=== PATIENT | female | born 1990 | race Hispanic/Latino ===

== ENCOUNTER 2017-08-08 21:23 | Emergency (ER) | payer MEDICAID ==
[2017-08-08 22:58] VITALS: BP 135/68; PULSE 84; RESP 18; TEMP 98.8; O2SAT 98; BMI 23.3
--- NOTE | 2017-08-08 23:03 | ED PDOC ---
HPI: Headache Time Seen by Provider: 08/08/17 22:10 Chief Complaint (Nursing): Headache History Per: Patient History/Exam Limitations: no limitations Onset/Duration Of Symptoms: Days (few) Additional Complaint(s): 26 yo F w/ pmh reports gradual onset of constant throbbing headache to her temples associated with photophobia, reports taking motrin 400 mg with minimal relief, states that she has had similar headaches in the past, related to migraines. Otherwise: (-) thunderclap headache, (-) worse headache of life, (-) nausea, (-) vomiting, (-) phonophobia, (-) URI symptoms, (-) fever, (-) trauma, (-) subjective neurologic symptoms. - Risk Factors SAH Risk Factors: Nest Degree Relative(s) W/SAH, Marfan's Syndrome, Sudden Onset Of Pain, Worst Headache Of Life Past Medical History Vital Signs: Last Vital Signs Temp 98.8 F 08/08/17 21:32 Pulse 84 08/08/17 21:32 Resp 18 08/08/17 21:32 BP 135/68 08/08/17 21:32 Pulse Ox 98 08/08/17 21:32 - Medical History PMH: Migraine - Surgical History Surgical History: No Surg Hx - Family History Family History: States: No Known Family Hx - Home Medications Home Medications: Ambulatory Orders Medication Instructions Recorded Acetaminophen [Tylenol] 500 mg PO Q6 PRN 12/12/14 Ibuprofen [Motrin] 600 mg PO TID PRN #30 tab 12/12/14 Metoclopramide HCl [Reglan] 10 mg PO QID PRN #20 tablet 08/08/17 Naproxen 500 mg PO BID #30 tab 08/08/17 - Allergies Allergies/Adverse Reactions: Allergies Allergy/AdvReac Type Severity Reaction Status Date / Time No Known Allergies Allergy Verified 08/08/17 21:32 Review of Systems Constitutional: Negative for: Fever, Chills, Weakness Cardiovascular: Negative for: Chest Pain, Palpitations Respiratory: Negative for: Cough, Shortness of Breath Gastrointestinal: Negative for: Nausea, Abdominal Pain Musculoskeletal: Negative for: Neck Pain, Back Pain Neurological: Positive for: Headache (h/o migraine). Negative for: Weakness, Numbness Physical Exam - Reviewed Nursing Documentation Reviewed: Yes Vital Signs Reviewed: Yes - Physical Exam Comments: GENERAL APPEARANCE: Patient is awake, alert, oriented x 3, in mild painful distress. SKIN: Warm, dry; (-) cyanosis; (-) rash. HEAD: (-) scalp swelling or tenderness, (-) temporal artery tenderness. EYES: (-) conjunctival pallor, (-) scleral icterus. ENMT: (-) sinus tenderness; mucous membranes moist. NECK: (-) tenderness, (-) stiffness, (-) meningismus, (-) lymphadenopathy. CHEST AND RESPIRATORY: (-) rales, (-) rhonchi, (-) wheezes; breath sounds equal bilaterally. HEART AND CARDIOVASCULAR: (-) irregularity; (-) murmur, (-) gallop. ABDOMEN AND GI: Soft; (-) tenderness. EXTREMITIES: (-) deformity. NEURO AND PSYCH: Mental status as above. 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 Strength and DTRs symmetric. Babinski normal bilaterally. - ECG O2 Sat by Pulse Oximetry: 98 Medical Decision Making Medical Decision Making: Previous medical records reviewed, patient was seen and evaluated in this emergency room in November 2014 for a headache and she had a normal CAT scan of her head during that visit. Plan : - Toradol 60 mg IM - Flexeril 10 mg by mouth On reevaluation, patient reported significant improvement of her headache. On exam patient is laying in bed comfortably in no acute distress. Repeat neuro exam shows no acute focal findings. Patient instructed to follow up with a neurologist in 1-2 days without fail. Advised to take medication as prescribed. Return to the emergency room at any time for any new or worsening symptoms. Patient states she fully agrees with and understands discharge instructions. States that she agrees with the plan and disposition. Verbalized and repeated discharge instructions and plan. I have given the patient opportunity to ask any additional questions. Disposition - Clinical Impression Clinical Impression: Headache, Migraine - Patient ED Disposition Is Patient to be Admitted: No Counseled Patient/Family Regarding: Diagnosis, Need For Followup, Rx Given - Disposition Disposition: Routine/Home Disposition Time: 00:00 Condition: STABLE Prescriptions: Metoclopramide HCl [Reglan] 10 mg PO QID PRN #20 tablet PRN Reason: Pain, Moderate (4-7) Naproxen 500 mg PO BID #30 tab Instructions: Migraine Headache (ED), Acute Headache (ED) Forms: [employer] [facility] (American), [facility] ED School/Work Excuse Print Language: SAUDI ARABIAN - 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
== END 2017-08-09 00:12 | disposition home or self-care (01) ==
LOC: H.ER 21:23
DX: G43.909 Migraine, unspecified, not intractable, without status migrainosus (principal)
CPT/HCPCS: 81025; 96372; 99282; J1885

== ENCOUNTER 2017-11-05 19:47 | Emergency (ER) | payer MEDICAID ==
[2017-11-05 19:47] VITALS: BMI 23.3
[2017-11-05 19:59] VITALS: BP 122/78; PULSE 72; RESP 18; TEMP 98.4; O2SAT 99
[2017-11-05 20:43] LABS: SQUAMOUS EPITHIAL 1 /hpf (0-5); URINE BILIRUBIN NEGATIVE (NEGATIVE); URINE BLOOD NEGATIVE (NEGATIVE); URINE CLARITY CLEAR (Clear); URINE COLOR STRAW (YELLOW); URINE GLUCOSE (UA) NEG (Normal); URINE LEUKOCYTE ESTERASE TRACE Leu/uL (Negative); URINE PROTEIN NEGATIVE (NEGATIVE); URINE UROBILINOGEN 0.2-1.0 mg/dL (0.2-1.0)
--- NOTE | 2017-11-05 22:10 | ED PDOC ---
HPI: General Adult Time Seen by Provider: 11/05/17 19:59 Chief Complaint (Nursing): Back Pain Chief Complaint (Provider): Right flank pain x 2 days History Per: Patient History/Exam Limitations: no limitations Onset/Duration Of Symptoms: Days Have you had recent travel within the past 21 days to any of the following countries: [place], [place], [place] or [place]?: No Current Symptoms Are (Timing): Still Present Additional Complaint(s): Pt states the pain radiates towards the front. No fever/chills. No similar in the past. No recent change in activities. Pt reports 1 episode of diarrhea. Denies dysuira, or SOB. Past Medical History Reviewed: Historical Data, Nursing Documentation, Vital Signs Vital Signs: Last Vital Signs Temp 98.4 F 11/05/17 19:56 Pulse 72 11/05/17 19:56 Resp 18 11/05/17 19:56 BP 122/78 11/05/17 19:56 Pulse Ox 99 11/05/17 22:10 - Medical History PMH: Migraine - Surgical History Surgical History: No Surg Hx - Family History Family History: States: No Known Family Hx - Home Medications Home Medications: Ambulatory Orders Medication Instructions Recorded Acetaminophen [Tylenol] 500 mg PO Q6 PRN 12/12/14 Ibuprofen [Motrin] 600 mg PO TID PRN #30 tab 12/12/14 Metoclopramide HCl [Reglan] 10 mg PO QID PRN #20 tablet 08/08/17 Naproxen 500 mg PO BID #30 tab 08/08/17 Ciprofloxacin [Cipro] 500 mg PO BID #10 tab 11/05/17 - Allergies Allergies/Adverse Reactions: Allergies Allergy/AdvReac Type Severity Reaction Status Date / Time No Known Allergies Allergy Verified 08/08/17 21:32 Review of Systems ROS Statement: Except As Marked, All Systems Reviewed And Found Negative Constitutional: Negative for: Fever, Chills Gastrointestinal: Positive for: Abdominal Pain (Radiated to right side ), Diarrhea Musculoskeletal: Positive for: Back Pain. Negative for: Neck Pain, Shoulder Pain Physical Exam - Reviewed Nursing Documentation Reviewed: Yes Vital Signs Reviewed: Yes - Physical Exam Appears: Positive for: Well, Non-toxic, No Acute Distress Head Exam: Positive for: ATRAUMATIC, NORMAL INSPECTION, NORMOCEPHALIC Skin: Positive for: Normal Color, Warm, DRY Eye Exam: Positive for: Normal appearance ENT: Positive for: Normal ENT Inspection Neck: Positive for: Normal, Painless ROM Cardiovascular/Chest: Positive for: Regular Rate, Rhythm Respiratory: Positive for: Normal Breath Sounds. Negative for: Accessory Muscle Use, Respiratory Distress Back: Positive for: Normal Inspection Extremity: Positive for: Normal ROM Neurologic/Psych: Positive for: Alert, Oriented - ECG O2 Sat by Pulse Oximetry: 99 Medical Decision Making Medical Decision Making: Endorsed pending US at 0000. Downtime. Disposition - Clinical Impression Clinical Impression: UTI (urinary tract infection) - Patient ED Disposition Is Patient to be Admitted: No Counseled Patient/Family Regarding: Diagnosis, Need For Followup, Rx Given - Disposition Disposition: Routine/Home Disposition Time: 00:00 Condition: STABLE Prescriptions: Ciprofloxacin [Cipro] 500 mg PO BID #10 tab Instructions: Urinary Tract Infections in Adults Forms: [facility] (Chinese)
--- NOTE | 2017-11-06 09:48 | US ---
HISTORY: Acute onset right flank pain, right ovarian cyst Menstrual status: LMP 10/26/2017 cycles are regular. Negative test (concurrent with this examination). COMPARISON: 11/05/2016 CT abdomen and pelvis TECHNIQUE: Transvaginal only. Real -time technique with 2D, duplex and color Doppler FINDINGS: UTERUS: Measures 3.9 x 4.8 x 6.8 cm. Normal in size and appearance. No fibroid or other mass lesion seen. ENDOMETRIUM: Measures 5.9 mm in diameter. No ultrasound findings to suggest gestational sac, fluid, debris, mass or polyp or other pathologic process within the endometrium. CERVIX: No cervical abnormality identified. RIGHT OVARY: Measures 2 x 2.6 x 2.4 cm. No solid mass. Normal flow. Multiple subcentimeter follicles. LEFT OVARY: Measures 1.1 x 3.5 x 3.6 cm. No solid mass. Normal flow. Multiple subcentimeter follicles. FREE FLUID: No significant free fluid noted. OTHER FINDINGS: None. IMPRESSION: No significant or acute findings to account for/ related to the clinical presentation.
--- NOTE | 2017-11-06 11:55 | CT ---
PROCEDURE: CT Abdomen and Pelvis without intravenous contrast HISTORY: Right flank pain COMPARISON: None. TECHNIQUE: CT scan of the abdomen and pelvis was performed without administration of intravenous contrast. Oral contrast was not administered. Coronal and sagittal reformatted images were obtained. Radiation dose: Total exam DLP = Total exam DLP = 296.99 mGy-cm. This CT exam was performed using one or more of the following dose reduction techniques: Automated exposure control, adjustment of the mA and/or kV according to patient size, and/or use of iterative reconstruction technique. FINDINGS: LOWER THORAX: The lung bases are clear. LIVER: Normal in size. No gross lesion or ductal dilatation. GALLBLADDER AND BILE DUCTS: No calcified gallstones. PANCREAS: Normal in size. No gross lesion or ductal dilatation. SPLEEN: Normal in size. ADRENALS: No discrete nodules. KIDNEYS AND URETERS: Both kidneys are normal in size without nephrolithiasis or hydronephrosis. VASCULATURE: No aortic aneurysm. BOWEL: The small bowel loops are normal in caliber. There is moderate amount of stool in the colon. No bowel dilatation or obstruction. . APPENDIX: Normal appendix. PERITONEUM: No free fluid. No free air. LYMPH NODES: No enlarged lymph nodes. BLADDER: The urinary bladder is partially decompressed. REPRODUCTIVE: The uterus is normal in size. BONES: No acute fracture. Within normal limits for the patient's age. OTHER FINDINGS: None. IMPRESSION: No acute abdominal or pelvic abnormality. A preliminary report was provided by [employer] [facility].
== END 2017-11-06 00:02 | disposition home or self-care (01) ==
LOC: H.ER 19:47
DX: N39.0 Urinary tract infection, site not specified (principal)

== ENCOUNTER 2018-03-01 21:42 | Emergency (ER) | payer SELFPAY ==
[2018-03-01 21:42] VITALS: BMI 23.3
[2018-03-01 21:49] VITALS: BP 130/84; PULSE 91; RESP 18; TEMP 98.5; O2SAT 100
--- NOTE | 2018-03-01 23:16 | ED PDOC ---
HPI: Headache Time Seen by Provider: 03/01/18 21:57 Chief Complaint (Nursing): Headache Chief Complaint (Provider): Posterior neck pain and headache History Per: Patient History/Exam Limitations: no limitations Onset/Duration Of Symptoms: Days Severity: Moderate Pain Scale Rating Of: 8 Quality: Dull Preceeding Symptoms: None Associated Symptoms: denies: Photophobia, Blurred Vision, Nausea, Vomiting, Extremity Weakness Additional Complaint(s): 27 yo female with no medical problems presents for evaluation of headache and neck pain x 5 days. Pt report similar in 2015 when she was seen in ER. Pt denies head injury. Pt states headache is similar to pain in 2015. Pt was seen at that time and had CT completed. Pt reports daily stress due to work. Past Medical History Reviewed: Historical Data, Nursing Documentation, Vital Signs Vital Signs: Last Vital Signs Temp 98.5 F 03/01/18 21:47 Pulse 91 H 03/01/18 21:47 Resp 18 03/01/18 21:47 BP 130/84 03/01/18 21:47 Pulse Ox 100 03/01/18 21:47 - Medical History PMH: Migraine - Surgical History Surgical History: No Surg Hx - Family History Family History: States: No Known Family Hx - Living Arrangements Living Arrangements: With Family - Home Medications Home Medications: Ambulatory Orders Medication Instructions Recorded Acetaminophen [Tylenol] 500 mg PO Q6 PRN 12/12/14 Ibuprofen [Motrin] 600 mg PO TID PRN #30 tab 12/12/14 Metoclopramide HCl [Reglan] 10 mg PO QID PRN #20 tablet 08/08/17 Naproxen 500 mg PO BID #30 tab 08/08/17 Ciprofloxacin [Cipro] 500 mg PO BID #10 tab 11/05/17 Acetaminophen/Butalbital/Caf 2 tab PO Q8H #16 tab 03/01/18 [Fioricet] - Allergies Allergies/Adverse Reactions: Allergies Allergy/AdvReac Type Severity Reaction Status Date / Time No Known Allergies Allergy Verified 08/08/17 21:32 Review of Systems ROS Statement: Except As Marked, All Systems Reviewed And Found Negative Constitutional: Negative for: Fever, Chills Gastrointestinal: Negative for: Nausea, Vomiting, Abdominal Pain Genitourinary Female: Negative for: Dysuria Musculoskeletal: Positive for: Neck Pain Neurological: Positive for: Headache (Posterior ). Negative for: Weakness, Numbness, Altered Mental Status Psych: Negative for: Psychosis, Suicidal ideation, Withdrawal Physical Exam - Reviewed Nursing Documentation Reviewed: Yes Vital Signs Reviewed: Yes - Physical Exam Appears: Positive for: Well, Non-toxic, No Acute Distress Head Exam: Positive for: ATRAUMATIC, NORMAL INSPECTION, NORMOCEPHALIC Skin: Positive for: Normal Color, Warm, DRY Eye Exam: Positive for: EOMI, Normal appearance, PERRL ENT: Positive for: Normal ENT Inspection Neck: Positive for: Normal, Painless ROM, Supple Respiratory: Negative for: Accessory Muscle Use, Respiratory Distress Back: Positive for: Normal Inspection Extremity: Positive for: Normal ROM Neurologic/Psych: 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 Negative for: Motor/Sensory Deficits, Aphasia, Facial Droop - ECG O2 Sat by Pulse Oximetry: 100 Medical Decision Making Medical Decision Making: Flexeril and toradol in Er. Pt reports feeling better. Discussed f/u outpatient. Disposition - Clinical Impression Clinical Impression: Headache - Patient ED Disposition Is Patient to be Admitted: No Counseled Patient/Family Regarding: Diagnosis, Need For Followup, Rx Given - Disposition Referrals: Cory Marrero MD [Staff Provider] - Disposition: Routine/Home Disposition Time: 23:14 Condition: GOOD Prescriptions: Acetaminophen/Butalbital/Caf [Fioricet] 2 tab PO Q8H #16 tab Instructions: Migraine Headache (DC)
== END 2018-03-01 23:26 | disposition home or self-care (01) ==
LOC: H.ER 21:42
DX: R51 Headache (principal)
CPT/HCPCS: 81025; 96372; 99285; J1885

== ENCOUNTER 2018-03-04 20:48 | Emergency (ER) | payer SELFPAY ==
[2018-03-04 20:48] VITALS: BMI 23.3
[2018-03-04 20:58] VITALS: O2SAT 100
--- NOTE | 2018-03-04 21:40 | ED PDOC ---
HPI: Headache Time Seen by Provider: 03/04/18 21:12 Chief Complaint (Nursing): Headache History Per: Patient History/Exam Limitations: no limitations Onset/Duration Of Symptoms: Days Current Symptoms Are (Timing): Better Additional Complaint(s): Hx of migraines presenting with headache and RUE numbness, states her headache currently is throbbing "all over", nonthunderclap, not maximal in onset, has been there for 5 days, states that she has not filled the prescription for fiorecet because she "forgot". States that at 6PM today she experienced RUE numbness, but not weakness or loss of function. Denies vision changes, nausea, vomiting, or any other symptoms. Past Medical History Reviewed: Historical Data, Nursing Documentation, Vital Signs Vital Signs: Last Vital Signs Temp 98.5 F 03/04/18 20:55 Pulse 83 03/04/18 20:55 Resp 16 03/04/18 20:55 BP 122/78 03/04/18 20:55 Pulse Ox 100 03/04/18 20:55 - Medical History PMH: Migraine Denies: Chronic Kidney Disease - Family History Family History: States: Unknown Family Hx - Home Medications Home Medications: Ambulatory Orders Medication Instructions Recorded Acetaminophen [Tylenol] 500 mg PO Q6 PRN 12/12/14 Ibuprofen [Motrin] 600 mg PO TID PRN #30 tab 12/12/14 Metoclopramide HCl [Reglan] 10 mg PO QID PRN #20 tablet 08/08/17 Naproxen 500 mg PO BID #30 tab 08/08/17 Ciprofloxacin [Cipro] 500 mg PO BID #10 tab 11/05/17 Acetaminophen/Butalbital/Caf 2 tab PO Q8H #16 tab 03/01/18 [Fioricet] - Allergies Allergies/Adverse Reactions: Allergies Allergy/AdvReac Type Severity Reaction Status Date / Time No Known Allergies Allergy Verified 03/04/18 20:55 Review of Systems ROS Statement: Except As Marked, All Systems Reviewed And Found Negative Neurological: Positive for: Headache Physical Exam - Reviewed Nursing Documentation Reviewed: Yes Vital Signs Reviewed: Yes - Physical Exam Appears: Positive for: Well, Non-toxic, No Acute Distress Head Exam: Positive for: ATRAUMATIC, NORMAL INSPECTION, NORMOCEPHALIC Skin: Positive for: Normal Color, Warm, DRY Eye Exam: Positive for: EOMI, Normal appearance, PERRL ENT: Positive for: Normal ENT Inspection Neck: Positive for: Normal, Painless ROM Cardiovascular/Chest: Positive for: Regular Rate, Rhythm Respiratory: Positive for: CNT, Normal Breath Sounds Gastrointestinal/Abdominal: Positive for: Normal Exam, Soft Back: Positive for: Normal Inspection Extremity: Positive for: Normal ROM Neurologic/Psych: 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 Negative for: Motor/Sensory Deficits, Aphasia, Facial Droop - ECG O2 Sat by Pulse Oximetry: 100 Pulse Ox Interpretation: Normal Medical Decision Making Medical Decision MakinPM Hx of migraines presenting with headache and numbness -patient very well appearing, normal vitals, normal exam including full neuro exam: normal -unlikely SAH, meningitis, or other patholgical headache -most likely complex migraine -will get head CT, give NSAID and re-eval 1045PM EXAM: CT Head Without Intravenous Contrast CLINICAL HISTORY: 27 years old, female; Pain and signs and symptoms; Other: Right arm tingling; Headache; Headache not specified; Additional info: Sindy flores, [place] TECHNIQUE: Axial computed tomography images of the head/brain without intravenous contrast. All CT scans at this facility use at least one of these dose optimization techniques: automated exposure control; mA and/or kV adjustment per patient size (includes targeted exams where dose is matched to clinical indication); or iterative reconstruction. Coronal and sagittal reformatted images were created and reviewed. COMPARISON: CT - HEAD W/O CONTRAST 2014-12-12 09:51 FINDINGS: Brain: Unremarkable. Ventricles: Unremarkable. Bones/joints: Unremarkable. No acute fracture. Soft tissues: Unremarkable. Sinuses: Unremarkable as visualized. Mastoid air cells: Unremarkable as visualized. IMPRESSION: No acute intracranial pathology or traumatic injury. Thank you for allowing us to participate in the care of your patient. Dictated and Authenticated by: Mp Ha MD 03/04/2018 10:47 PM Eastern Time ([place] & [place]) Patient feeling better, advised to followup as outpatient with neuro. Advised NSAIDs for headache and if worsening, may take fiorecet as previously prescribed. Vitals stable, well appearing upon discharge. Disposition - Clinical Impression Clinical Impression: Migraine - Disposition Referrals: Spencer Steele MD [Medical Doctor] - Disposition: Routine/Home Disposition Time: 22:49 Condition: IMPROVED Instructions: Migraine Headaches in Adults Forms: [facility] (Croatian)
[2018-03-04 23:10] VITALS: BP 147/82; PULSE 94; RESP 18; TEMP 97.8
--- NOTE | 2018-03-05 07:42 | CT ---
Date of service: 03/04/2018 PROCEDURE: CT HEAD WITHOUT CONTRAST. HISTORY: Right upper extremity numbness, [place] COMPARISON: CT head dated 12/12/2014 TECHNIQUE: Axial computed tomography images were obtained through the head/brain without intravenous contrast. Radiation dose: Total exam DLP = 650 mGy-cm. This CT exam was performed using one or more of the following dose reduction techniques: Automated exposure control, adjustment of the mA and/or kV according to patient size, and/or use of iterative reconstruction technique. FINDINGS: HEMORRHAGE: No intracranial hemorrhage. BRAIN: No mass effect or edema. No atrophy or chronic microvascular ischemic changes. VENTRICLES: Unremarkable. No hydrocephalus. CALVARIUM: Unremarkable. PARANASAL SINUSES: Unremarkable as visualized. No significant inflammatory changes. MASTOID AIR CELLS: Unremarkable as visualized. No inflammatory changes. OTHER FINDINGS: None. IMPRESSION: No acute intracranial abnormality. If symptoms persists, consider correlation with MRI. These findings were preliminarily reported at 10:47 p.m. on 03/04/[address] Mp Ha from [facility].
== END 2018-03-04 23:19 | disposition home or self-care (01) ==
LOC: H.ER 20:48
DX: G43.909 Migraine, unspecified, not intractable, without status migrainosus (principal)

== ENCOUNTER 2018-05-06 19:19 | Emergency (ER) | payer SELFPAY ==
[2018-05-06 19:19] VITALS: BMI 23.3
[2018-05-06 19:49] VITALS: BP 137/82; PULSE 78; RESP 16; O2SAT 100
--- NOTE | 2018-05-06 20:56 | ED PDOC ---
HPI: Abdomen Time Seen by Provider: 05/06/18 20:45 Chief Complaint (Nursing): Abdominal Pain Chief Complaint (Provider): lower abdominal cramping History Per: Patient History/Exam Limitations: no limitations Onset/Duration Of Symptoms: Days (2), Waxing/Waning Current Symptoms Are (Timing): Still Present Location Of Pain/Discomfort: RLQ, LLQ, Suprapubic Quality Of Discomfort: Cramping Additional Complaint(s): 27 y/o female presents for evaluation of intermittent lower abdominal cramping x 2 days, worse today. + breast soreness. Denies fever, nausea/vomiting, chest pain, shortness of breath, palpitations, changes in bowel movements, urinary symptoms, vaginal bleeding/discharge. Patient had + test at home last week. Abnormal Vaginal Bleeding: No Last Menstral Period: 04/02/18 : 3 Para: 1 Miscarriage: 1 Past Medical History Reviewed: Historical Data, Nursing Documentation, Vital Signs Vital Signs: Last Vital Signs Temp 98.3 F 05/06/18 19:46 Pulse 78 05/06/18 19:46 Resp 16 05/06/18 19:46 BP 137/82 05/06/18 19:46 Pulse Ox 100 05/06/18 19:46 - Medical History PMH: Migraine Denies: Chronic Kidney Disease - Surgical History Surgical History: No Surg Hx - Family History Family History: States: Unknown Family Hx - Living Arrangements Living Arrangements: With Family - Home Medications Home Medications: Ambulatory Orders Medication Instructions Recorded Acetaminophen [Tylenol] 500 mg PO Q6 PRN 12/12/14 Ibuprofen [Motrin] 600 mg PO TID PRN #30 tab 12/12/14 Metoclopramide HCl [Reglan] 10 mg PO QID PRN #20 tablet 08/08/17 Naproxen 500 mg PO BID #30 tab 08/08/17 Ciprofloxacin [Cipro] 500 mg PO BID #10 tab 11/05/17 Acetaminophen/Butalbital/Caf 2 tab PO Q8H #16 tab 03/01/18 [Fioricet] Nitrofurantoin Macrocrystals 100 mg PO BID #9 cap 05/07/18 [Macrobid] - Allergies Allergies/Adverse Reactions: Allergies Allergy/AdvReac Type Severity Reaction Status Date / Time No Known Allergies Allergy Verified 05/06/18 19:46 Review of Systems ROS Statement: Except As Marked, All Systems Reviewed And Found Negative Genitourinary Female: Positive for: Pelvic Pain Physical Exam - Reviewed Nursing Documentation Reviewed: Yes Vital Signs Reviewed: Yes - Physical Exam Appears: Positive for: Well, Non-toxic, No Acute Distress Head Exam: Positive for: ATRAUMATIC, NORMAL INSPECTION, NORMOCEPHALIC Skin: Positive for: Normal Color Eye Exam: Positive for: Normal appearance ENT: Positive for: Normal ENT Inspection Cardiovascular/Chest: Positive for: Regular Rate, Rhythm Respiratory: Positive for: Normal Breath Sounds Gastrointestinal/Abdominal: Positive for: Bowel Sounds, Soft, Tenderness (rlq, llq) Back: Positive for: Normal Inspection Extremity: Positive for: Normal ROM Neurologic/Psych: Positive for: Alert, Oriented (x3) - Laboratory Results Result Diagrams: 05/06/18 21:30 05/06/18 21:30 - ECG O2 Sat by Pulse Oximetry: 100 - Progress ED Course And Treament: labs, urine, OB TV u/s USArad impression: tiny cystic structure in the endometrial canal which could represent a very early gestation. No evidence of a pole or yolk sac this time. If there is continued clinical concern, serial serum beta hCG levels would be recommended for further evaluation Ptaient educated on findings, discharged with rx Macrobid (dose given in ED) Advised follow up in 48 hours for repeat beta. Return precautions given Disposition - Clinical Impression Clinical Impression: Abdominal pain during , UTI (urinary tract infection) - Patient ED Disposition Is Patient to be Admitted: No Counseled Patient/Family Regarding: Studies Performed, Diagnosis, Need For Followup, Rx Given - Disposition [facility] Disposition: Routine/Home Disposition Time: 00:16 Condition: IMPROVED Prescriptions: Nitrofurantoin Macrocrystals [Macrobid] 100 mg PO BID #9 cap Instructions: Urinary Tract Infections in Adults, Round Ligament Pain
[2018-05-06 21:50] LABS: BASO % 0.4 % (0.0-2.0); EOS # 0.1 K/uL (0.0-0.7); EOS % 0.9 % (0.0-4.0); HEMOGLOBIN 11.1 g/dL (12.0-16.0); LYMPH # 2.2 K/uL (1.0-4.3); LYMPH % 22.4 % (20.0-40.0); MEAN CELL VOLUME 80.6 fl (81.0-99.0); MEAN CORPUSCULAR HGB CONC 32.2 g/dL (33.0-37.0); MONO # 0.6 K/uL (0.0-0.8); MONO % 6.2 % (0.0-10.0); NEUT % 70.1 % (50.0-75.0); NRBC % 0.1 % (0.0-0.0); RBC 4.26 Mil/uL (3.80-5.20); RED CELL DISTRIBUTION WIDTH 16.6 % (11.5-14.5)
[2018-05-06 21:51] LABS: SQUAMOUS EPITHIAL 1 /hpf (0-5); URINE BACTERIA RARE (<OCC); URINE BILIRUBIN NEGATIVE (NEGATIVE); URINE BLOOD NEGATIVE (NEGATIVE); URINE CLARITY SLIGHTY-CLOUDY (Clear); URINE COLOR YELLOW (YELLOW); URINE GLUCOSE (UA) NEG (Normal); URINE LEUKOCYTE ESTERASE TRACE Leu/uL (Negative); URINE PROTEIN NEGATIVE (NEGATIVE); URINE UROBILINOGEN 0.2-1.0 mg/dL (0.2-1.0)
[2018-05-06 21:55] LABS: ALB/GLOB RATIO 1.2 (1.0-2.1); ALBUMIN 4.2 g/dL (3.5-5.0); ALT/SGPT 30 U/L (9-52); AST/SGOT 20 U/L (14-36); BLOOD UREA NITROGEN 9 mg/dl (7-17); CALCIUM 9.6 mg/dL (8.4-10.2); GFR NON-AFRICAN AMERICAN > 60
[2018-05-07 00:38] VITALS: TEMP 98.5
--- NOTE | 2018-05-07 15:35 | US ---
Date of service: 05/06/2018 PROCEDURE: OB Pelvic Ultrasound HISTORY: ; pain COMPARISON: None available. FINDINGS: UTERUS: The central endometrial echo complex measures 13 mm. There is a small anechoic structure in the endometrial canal which measures 0.4 cm. Uterus measures 7.3 x 4.6 x 5.5 cm. No mass CERVIX: Long and closed. No cervical abnormality seen. RIGHT OVARY: Measures 2.3 x 2.1 x 1.8 cm. No mass. Normal flow. LEFT OVARY: Measures 2.7 x 1.9 x 3.6 cm. No mass. Normal flow. FREE FLUID: None. OTHER FINDINGS: None. IMPRESSION: Small anechoic structure within the endometrial canal which could represent gestational sac with the stated clinical history. It is too small to accurately characterize gestational age. Clinical and imaging follow-up is advised. A preliminary report was provided by [employer].
== END 2018-05-07 00:43 | disposition home or self-care (01) ==
LOC: H.ER 19:19
DX: N39.0 Urinary tract infection, site not specified (principal)

== ENCOUNTER 2018-05-20 12:35 | Emergency (ER) | payer MEDICAID ==
[2018-05-20 12:35] VITALS: BMI 23.3
--- NOTE | 2018-05-20 13:17 | ED PDOC ---
HPI: Abdomen Time Seen by Provider: 05/20/18 12:53 Chief Complaint (Nursing): Abdominal Pain Chief Complaint (Provider): Epigastric pain History Per: Patient History/Exam Limitations: no limitations Onset/Duration Of Symptoms: Days (several weeks) Outside of [place] travel?: No Current Symptoms Are (Timing): Still Present Location Of Pain/Discomfort: Epigastric Quality Of Discomfort: Cramping, Burning Associated Symptoms: Nausea, Loss Of Appetite Exacerbating Factors: Food Alleviating Factors: Other (milk) Additional Complaint(s): 27 y/o 7 week Female, , who presents today with c/o epigastric pain. Pt presented to ED on 05/05 with abdominal pain at which time was found to have UTI treated with Macrobid. She also had TV ultrasound that showed Past Medical History Vital Signs: Last Vital Signs Temp 98.4 F 05/20/18 12:38 Pulse 86 05/20/18 12:38 Resp 17 05/20/18 12:38 BP 131/79 05/20/18 12:38 Pulse Ox 98 05/20/18 12:38 - Medical History PMH: Migraine Denies: Chronic Kidney Disease - Family History Family History: States: Unknown Family Hx - Home Medications Home Medications: Ambulatory Orders Medication Instructions Recorded Acetaminophen [Tylenol] 500 mg PO Q6 PRN 12/12/14 Ibuprofen [Motrin] 600 mg PO TID PRN #30 tab 12/12/14 Metoclopramide HCl [Reglan] 10 mg PO QID PRN #20 tablet 08/08/17 Naproxen 500 mg PO BID #30 tab 08/08/17 Ciprofloxacin [Cipro] 500 mg PO BID #10 tab 11/05/17 Acetaminophen/Butalbital/Caf 2 tab PO Q8H #16 tab 03/01/18 [Fioricet] Nitrofurantoin Macrocrystals 100 mg PO BID #9 cap 05/07/18 [Macrobid] - Allergies Allergies/Adverse Reactions: Allergies Allergy/AdvReac Type Severity Reaction Status Date / Time No Known Allergies Allergy Verified 05/20/18 12:37 - Laboratory Results Result Diagrams: 05/20/18 13:30 05/20/18 13:30 - ECG O2 Sat by Pulse Oximetry: 98 Medical Decision Making Medical Decision Making: RUQ Ultrasound Transvaginal U/S CBC, CMP U/A Pepcid 20mg IV x 1 U/A negative CBC: HgB 11.4, otherwise wnl CMP: Wnl Transvaginal U/S: single live intrauterine gestation with average U/S age 6 wks 5 days. HR 121 beats/min. Cervix long and closed. RUQ U/S: unremarkable Pt re-evaluated with improvement in epigastric pain after pepcid taken. Pt discharged with recommendation for PRN Pepcid/Tums for occasional epigastric pain. Referred to [facility] for care. Disposition - Clinical Impression Clinical Impression: Gastritis - Patient ED Disposition Is Patient to be Admitted: No - Disposition Referrals: [facility] [Outside] Disposition: Routine/Home Disposition Time: 17:55 Condition: STABLE Additional Instructions: Ok to use TUMs for pain. Avoid acidic foods. 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 Instructions: Gastritis (DC) Forms: [facility] (Icelandic), [facility] ED School/Work Excuse Print Language: TELUGU
[2018-05-20 13:52] LABS: BASO % 0.1 % (0.0-2.0); EOS % 0.5 % (0.0-4.0); HEMOGLOBIN 11.4 g/dL (12.0-16.0); LYMPH # 1.2 K/uL (1.0-4.3); LYMPH % 15.3 % (20.0-40.0); MEAN CELL VOLUME 81.2 fl (81.0-99.0); MEAN CORPUSCULAR HEMOGLOBIN 26.1 pg (27.0-31.0); MEAN CORPUSCULAR HGB CONC 32.1 g/dL (33.0-37.0); MEAN PLATELET VOLUME 11.6 fl (7.2-11.7); MONO # 0.4 K/uL (0.0-0.8); MONO % 5.7 % (0.0-10.0); NEUT # 6.1 K/uL (1.8-7.0); NEUT % 78.4 % (50.0-75.0); RBC 4.39 Mil/uL (3.80-5.20); RED CELL DISTRIBUTION WIDTH 17.1 % (11.5-14.5); WHITE BLOOD COUNT 7.8 K/uL (4.8-10.8)
[2018-05-20 14:01] LABS: SQUAMOUS EPITHIAL 4 /hpf (0-5); URINE AMORPHOUS SEDIMENT OCC /ul (<OCC); URINE BACTERIA RARE (<OCC); URINE BILIRUBIN NEGATIVE (NEGATIVE); URINE BLOOD NEGATIVE (NEGATIVE); URINE CLARITY TURBID (Clear); URINE COLOR YELLOW (YELLOW); URINE GLUCOSE (UA) NEG (Normal); URINE LEUKOCYTE ESTERASE NEG Leu/uL (Negative); URINE PROTEIN NEGATIVE (NEGATIVE); URINE UROBILINOGEN 0.2-1.0 mg/dL (0.2-1.0)
[2018-05-20 14:13] LABS: ALB/GLOB RATIO 1.2 (1.0-2.1); ALBUMIN 4.2 g/dL (3.5-5.0); ALT/SGPT 26 U/L (9-52); AST/SGOT 21 U/L (14-36); BLOOD UREA NITROGEN 6 mg/dl (7-17); CALCIUM 9.8 mg/dL (8.4-10.2); GFR NON-AFRICAN AMERICAN > 60; LIPASE 62 U/L (23-300)
[2018-05-20 16:02] VITALS: RESP 16
--- NOTE | 2018-05-20 16:23 | US ---
Date of service: 05/20/2018 HISTORY: epigastric pain, FH of cholelithiasis COMPARISON: None. TECHNIQUE: Sonographic evaluation of the right upper quadrant of the abdomen. FINDINGS: LIVER: Measures 15.0 cm in length. Normal echogenicity of the liver parenchyma. No mass. No intrahepatic bile duct dilatation. GALLBLADDER: Unremarkable. No gallstones. COMMON BILE DUCT: Measures 5 mm. No stones. No dilatation. PANCREAS: Unremarkable as visualized. No mass. No ductal dilatation. RIGHT KIDNEY: Measures 11.1 x 3.8 x 5.4 cm in length. Normal echogenicity. No calculus, mass, or hydronephrosis. AORTA: No aneurysmal dilatation. No aortic atherosclerotic calcification or mural plaque present. IVC: Unremarkable. OTHER FINDINGS: None . IMPRESSION: Unremarkable right upper quadrant ultrasound.
--- NOTE | 2018-05-20 16:31 | US ---
Date of service: 05/20/2018 PROCEDURE: OB Pelvic Ultrasound HISTORY: repeat transvaginal U/S LMP: 04/02/2018 COMPARISON: Pelvic ultrasound dated 05/06/2018 FINDINGS: UTERUS: Gestational sac: Single intrauterine gestation. Measures 2.2 cm compatible with estimated gestational age of 6 weeks, 5 days Yolk sac: Measures 0.3 cm pole: [place]-rump length measures 0.7 cm compatible with estimated gestational age of 6 weeks, 4 days Heart rate: 121 bpm. age (Ultrasound estimated): 6 weeks, 5 days Hue-gestational hemorrhage: None. Date of delivery (Ultrasound estimated) : 01/08/2019 Uterus measures 10.3 x 7.7 x 6.0 cm. Normal in size and appearance. CERVIX: Measures 4.8 cm. Long and closed. No cervical abnormality seen. RIGHT OVARY: Measures 2.7 x 2.3 x 2.1 cm. No mass lesion. Normal flow. LEFT OVARY: Measures 3.5 x 3.1 x 2.1 cm. 1.4 x 1.9 x 1.4 cm corpus luteum. Normal flow. FREE FLUID: None. OTHER FINDINGS: None. IMPRESSION: Single live intrauterine gestation with average ultrasound age of 6 weeks, 5 days. heart rate 121 beats per minute. Cervix long and closed.
[2018-05-20 18:15] VITALS: BP 108/59; PULSE 81; TEMP 98.7
[2018-05-20 21:15] VITALS: O2SAT 98
== END 2018-05-20 18:14 | disposition home or self-care (01) ==
LOC: H.ER 12:35
DX: K29.70 Gastritis, unspecified, without bleeding (principal); Z33.1 Pregnant state, incidental

== ENCOUNTER 2018-06-05 10:07 | Emergency (ER) | payer MEDICAID ==
[2018-06-05 10:10] VITALS: BMI 23.8
[2018-06-05 10:11] VITALS: O2SAT 99
[2018-06-05] MEDS ORDERED: Sodium Chloride 0.9% 1,000 ML IV STA (10:23)
--- NOTE | 2018-06-05 10:26 | ED PDOC ---
HPI: Abdomen Time Seen by Provider: 06/05/18 10:12 Chief Complaint (Nursing): Abdominal Pain History Per: Patient Onset/Duration Of Symptoms: Other (Chronic) Current Symptoms Are (Timing): Still Present Severity: Moderate Location Of Pain/Discomfort: Epigastric Quality Of Discomfort: Unable To Describe Associated Symptoms: denies: Fever, Nausea, Vomiting, Diarrhea, Urinary Symptoms Exacerbating Factors: None Alleviating Factors: None Additional Complaint(s): Epigastric abd pain chronic. Not assoc with NVD or fever but does have decreased apatite. Pt 9 weeks . Denies vaginal bleeding. Has not felt baby move. Abnormal Vaginal Bleeding: No Past Medical History Vital Signs: Last Vital Signs Temp 98.4 F 06/05/18 10:10 Pulse 80 06/05/18 10:10 Resp 17 06/05/18 10:10 BP 127/80 06/05/18 10:10 Pulse Ox 99 06/05/18 10:10 - Medical History PMH: Migraine Denies: Chronic Kidney Disease - Family History Family History: States: Unknown Family Hx - Immunization History Hx Tetanus Toxoid Vaccination: No Hx Influenza Vaccination: No Hx Pneumococcal Vaccination: No - Home Medications Home Medications: Ambulatory Orders Medication Instructions Recorded Acetaminophen [Tylenol] 500 mg PO Q6 PRN 12/12/14 Ibuprofen [Motrin] 600 mg PO TID PRN #30 tab 12/12/14 Metoclopramide HCl [Reglan] 10 mg PO QID PRN #20 tablet 08/08/17 Naproxen 500 mg PO BID #30 tab 08/08/17 Ciprofloxacin [Cipro] 500 mg PO BID #10 tab 11/05/17 Acetaminophen/Butalbital/Caf 2 tab PO Q8H #16 tab 03/01/18 [Fioricet] Nitrofurantoin Macrocrystals 100 mg PO BID #9 cap 05/07/18 [Macrobid] Doxylamine/Pyridoxine HCl (B6) 1 each PO DAILY #30 tablet. 06/05/18 [Johan Bobby 10-10 mg Tablet] Famotidine [Pepcid] 20 mg PO Q12 #20 tab 06/05/18 Nitrofurantoin Macrocrystals 100 mg PO BID #14 cap 06/05/18 [Macrobid] - Allergies Allergies/Adverse Reactions: Allergies Allergy/AdvReac Type Severity Reaction Status Date / Time No Known Allergies Allergy Verified 05/20/18 12:37 Review of Systems ROS Statement: Except As Marked, All Systems Reviewed And Found Negative Constitutional: Negative for: Fever Gastrointestinal: Positive for: Abdominal Pain Genitourinary Female: Negative for: Dysuria, Frequency, Vaginal Bleeding Musculoskeletal: Negative for: Back Pain Physical Exam - Reviewed Nursing Documentation Reviewed: Yes Vital Signs Reviewed: Yes - Physical Exam Appears: Positive for: Non-toxic, No Acute Distress Head Exam: Positive for: ATRAUMATIC, NORMAL INSPECTION, NORMOCEPHALIC Skin: Positive for: Normal Color, Warm, DRY Neck: Positive for: Normal, Painless ROM Cardiovascular/Chest: Positive for: Regular Rate, Rhythm Respiratory: Positive for: CNT, Normal Breath Sounds Gastrointestinal/Abdominal: Positive for: Soft, Tenderness (Epigastric) Back: Positive for: Normal Inspection Extremity: Positive for: Normal ROM Neurologic/Psych: Positive for: Alert, Oriented - Laboratory Results Result Diagrams: 06/05/18 10:30 06/05/18 10:30 - ECG O2 Sat by Pulse Oximetry: 99 Disposition - Clinical Impression Clinical Impression: Gastritis, UTI (urinary tract infection) - Patient ED Disposition Is Patient to be Admitted: No Counseled Patient/Family Regarding: Studies Performed, Diagnosis, Need For Followup, Rx Given - [facility]position [facility] Disposition: Routine/Home Disposition Time: 12:32 Condition: FAIR Prescriptions: Doxylamine/Pyridoxine HCl (B6) [Johan Bobby 10-10 mg Tablet] 1 each PO DAILY #30 tablet. Famotidine [Pepcid] 20 mg PO Q12 #20 tab Nitrofurantoin Macrocrystals [Macrobid] 100 mg PO BID #14 cap Instructions: Gastritis, Urinary Tract Infections in Adults Forms: [facility] (Indonesian)
[2018-06-05 10:52] LABS: BASO % 0.4 % (0.0-2.0); EOS % 0.2 % (0.0-4.0); HEMOGLOBIN 11.3 g/dL (12.0-16.0); LYMPH # 1.1 K/uL (1.0-4.3); MEAN CELL VOLUME 81.3 fl (81.0-99.0); MEAN CORPUSCULAR HEMOGLOBIN 25.8 pg (27.0-31.0); MEAN CORPUSCULAR HGB CONC 31.7 g/dL (33.0-37.0); MEAN PLATELET VOLUME 10.8 fl (7.2-11.7); MONO # 0.5 K/uL (0.0-0.8); MONO % 5.1 % (0.0-10.0); NEUT # 8.5 K/uL (1.8-7.0); NEUT % 83.3 % (50.0-75.0); RBC 4.37 Mil/uL (3.80-5.20); RED CELL DISTRIBUTION WIDTH 17.5 % (11.5-14.5); WHITE BLOOD COUNT 10.1 K/uL (4.8-10.8)
[2018-06-05 11:15] LABS: ALB/GLOB RATIO 1.3 (1.0-2.1); ALBUMIN 4.2 g/dL (3.5-5.0); ALT/SGPT 33 U/L (9-52); AST/SGOT 24 U/L (14-36); BLOOD UREA NITROGEN 8 mg/dl (7-17); CALCIUM 9.5 mg/dL (8.4-10.2); GFR NON-AFRICAN AMERICAN > 60; LIPASE 74 U/L (23-300)
--- NOTE | 2018-06-05 12:18 | US ---
Date of service: 06/05/2018 PROCEDURE: OB Pelvic Ultrasound HISTORY: Abdominal pain COMPARISON: 05/20/2018. FINDINGS: Transvaginal pelvic ultrasound was performed. UTERUS: Single Live intrauterine gestation. CRL measures 2.4 cm equivalent to 9 weeks and 1 day of gestational age. Gestational sac diameter measures 4.2 cm equivalent to 9 weeks and 4 days of gestational age. Yolk sac is visualized. age (Ultrasound estimated): 9 weeks and 3 days Date of delivery (Ultrasound estimated) : 01/05/2019 Heart rate: 169 bpm. Hue-gestational hemorrhage: None. Uterus measures 11.5 x 8.4 x 6.3 cm. No mass CERVIX: Long and closed. No cervical abnormality seen. Cervical length measures 4.9 cm. RIGHT OVARY: Measures 2.6 x 2.1 x 2.1 cm. No mass. Normal flow. LEFT OVARY: Measures 3.0 x 2.7 x 1.5 cm. No mass. Normal flow. FREE FLUID: None. OTHER FINDINGS: None. IMPRESSION: Single live intrauterine gestation with mean gestational age of 9 weeks and 3 days. The estimated date of delivery by ultrasound is 01/05/2019. The ultrasound dates correspond with the clinical dates.
[2018-06-05 12:45] VITALS: BP 128/76; PULSE 72; RESP 16; TEMP 98.6
== END 2018-06-05 12:35 | disposition home or self-care (01) ==
LOC: H.ER 10:07
DX: O23.41 Unspecified infection of urinary tract in pregnancy, first trimester (principal); O99.611 Diseases of the digestive system complicating pregnancy, first trimester; K29.70 Gastritis, unspecified, without bleeding; Z3A.09 9 weeks gestation of pregnancy
CPT/HCPCS: 76817; 80053; 81025; 83690; 84702; 85025; 86850; 86900; 87086; 96374; 99284; J7030

== ENCOUNTER 2018-07-17 05:28 | Emergency (ER) | payer MEDICAID ==
[2018-07-17 05:29] VITALS: BMI 23.8
[2018-07-17 05:54] VITALS: TEMP 98.2
[2018-07-17] MEDS ORDERED: Albuterol 0.083% Inhal Sol (2.5 mg/3 mL) UD INH ONE (06:26)
[2018-07-17] MEDS ORDERED: Sodium Chloride 0.9% 1,000 ML IV STA (06:26)
--- NOTE | 2018-07-17 06:30 | ED PDOC ---
HPI: General Adult Time Seen by Provider: 07/17/18 05:30 Chief Complaint (Nursing): Flu-like Symptoms Chief Complaint (Provider): Flu-like Symptoms History Per: Patient History/Exam Limitations: no limitations Onset/Duration Of Symptoms: Days (x1) Additional Complaint(s): 27 y/o female, who is 15 weeks with , presents to ER for evaluation of shortness of breath associated with dry cough, nasal congestion and body aches onset last night. Patient reports cramping abdominal pain and denies any bleeding, fever, vomiting or taking any medications for pain. PMD: [facility] Past Medical History Reviewed: Historical Data, Nursing Documentation, Vital Signs Vital Signs: Last Vital Signs Temp 98.2 F 07/17/18 05:50 Pulse 82 07/17/18 05:50 Resp 19 07/17/18 05:50 BP 117/73 07/17/18 05:50 Pulse Ox 99 07/17/18 05:50 GINO Report Viewed: Yes - Medical History PMH: Migraine Denies: Chronic Kidney Disease - Surgical History Surgical History: No Surg Hx - Family History Family History: States: Unknown Family Hx - Social History Current smoker - smoking cessation education provided: No Alcohol: None Drugs: Denies - Immunization History Hx Tetanus Toxoid Vaccination: No Hx Influenza Vaccination: No Hx Pneumococcal Vaccination: No - Home Medications Home Medications: Ambulatory Orders Medication Instructions Recorded Acetaminophen [Tylenol] 500 mg PO Q6 PRN 12/12/14 Ibuprofen [Motrin] 600 mg PO TID PRN #30 tab 12/12/14 Metoclopramide HCl [Reglan] 10 mg PO QID PRN #20 tablet 08/08/17 RX: Naproxen 500 mg PO BID #30 tab 08/08/17 Ciprofloxacin [Cipro] 500 mg PO BID #10 tab 11/05/17 Acetaminophen/Butalbital/Caf 2 tab PO Q8H #16 tab 03/01/18 [Fioricet] Nitrofurantoin Macrocrystals 100 mg PO BID #9 cap 05/07/18 [Macrobid] Doxylamine/Pyridoxine HCl (B6) 1 each PO DAILY #30 tablet. 06/05/18 [Johan Bobby 10-10 mg Tablet] Famotidine [Pepcid] 20 mg PO Q12 #20 tab 06/05/18 Nitrofurantoin Macrocrystals 100 mg PO BID #14 cap 06/05/18 [Macrobid] Nitrofurantoin Macrocrystals 100 mg PO BID #14 cap 07/17/18 [Macrobid] - Allergies Allergies/Adverse Reactions: Allergies Allergy/AdvReac Type Severity Reaction Status Date / Time No Known Allergies Allergy Verified 05/20/18 12:37 Review of Systems ROS Statement: Except As Marked, All Systems Reviewed And Found Negative Constitutional: Negative for: Fever ENT: Positive for: Nose Congestion Respiratory: Positive for: Cough (dry), Shortness of Breath Gastrointestinal: Positive for: Abdominal Pain (cramping). Negative for: Vomiting Genitourinary Female: Negative for: Vaginal Discharge, Vaginal Bleeding Physical Exam - Reviewed Nursing Documentation Reviewed: Yes Vital Signs Reviewed: Yes - Physical Exam Appears: Positive for: Non-toxic, No Acute Distress Head Exam: Positive for: ATRAUMATIC, NORMOCEPHALIC Skin: Positive for: Normal Color, Warm, Dry Eye Exam: Positive for: Normal appearance, EOMI, PERRL ENT: Positive for: Normal ENT Inspection Neck: Positive for: Normal, Painless ROM, Supple Cardiovascular/Chest: Positive for: Regular Rate, Rhythm. Negative for: Murmur Respiratory: Positive for: Normal Breath Sounds. Negative for: Wheezing Gastrointestinal/Abdominal: Positive for: Normal Exam, Soft. Negative for: Tenderness Back: Positive for: Normal Inspection. Negative for: L CVA Tenderness, R CVA Tenderness Extremity: Positive for: Normal ROM. Negative for: Pedal Edema, Deformity Neurologic/Psych: Positive for: Alert, Oriented (x3) - ECG O2 Sat by Pulse Oximetry: 99 (RA) Pulse Ox Interpretation: Normal Medical Decision Making Medical Decision Making: Time: 625 Initial Plan: URI, --Albuterol 2.5 mg --Tylenol 325 mg --Peak flow pre/post treatement --Influenza A B --Rapid strep --Pelvis/Transvaginal US Scribe Attestation: Documented by Madelyn Cornell, acting as a scribe for Renetta Ward MD. Provider Scribe Attestation: All medical record entries made by the Scribe were at my direction and personally dictated by me. I have reviewed the chart and agree that the record accurately reflects my personal performance of the history, physical exam, medical decision making, and the department course for this patient. I have also personally directed, reviewed, and agree with the discharge instructions and disposition. Disposition - Clinical Impression Clinical Impression: UTI (urinary tract infection) - Patient ED Disposition Is Patient to be Admitted: Transfer of Care - Disposition Disposition: Transfer of Care Disposition Time: 07:00 Condition: FAIR Prescriptions: Nitrofurantoin Macrocrystals [Macrobid] 100 mg PO BID #14 cap Instructions: Urinary Tract Infections in Adults Forms: [facility] (Indonesian) Patient Signed Over To: Jean Wilcox Handoff Comments: pending US and reeval
[2018-07-17] MEDS ORDERED: Albuterol 0.083% Inhal Sol (2.5 mg/3 mL) UD ONE (06:34)
--- NOTE | 2018-07-17 12:06 | ED PDOC ---
- ECG O2 Sat by Pulse Oximetry: 99 (RA) Disposition - Clinical Impression Clinical Impression: UTI (urinary tract infection) - POA Present On Arrival: None - Disposition Disposition: Routine/Home Disposition Time: 12:05 Condition: FAIR Prescriptions: Nitrofurantoin Macrocrystals [Macrobid] 100 mg PO BID #14 cap Instructions: Urinary Tract Infections in Adults Forms: [facility] (Wolof)
[2018-07-17 12:32] VITALS: BP 115/78; PULSE 60; RESP 18
--- NOTE | 2018-07-17 23:43 | US ---
Date of service: 07/17/2018 PROCEDURE: Limited ultrasound HISTORY: Back pain and headaches COMPARISON: 06/05/2018 1st trimester ultrasound TECHNIQUE: Standard protocol for this study/examination. FINDINGS: Transverse presentation. Posterior placenta. No evidence of abruption or previa Gestational age derived from LMP 15 weeks 1 day. QUITA 01/07/2019. Gestational age derived from the following biometric parameters 15 weeks 3 days. QUITA 01/05/2019 Biparietal diameter 2.90 cm Head circumference 11.17 cm Abdominal circumference 9.18 cm Femur length 1.86 cm Estimated weight 124.2 g Calculated cardiac rate 146 beats per min. Closed cervix. IMPRESSION: Fifteen weeks 3 days live intrauterine gestation. Adequate interval progression. Gestational concordance docking
[2018-07-23 02:18] VITALS: O2SAT 99
== END 2018-07-17 12:31 | disposition home or self-care (01) ==
LOC: H.ER 05:28
DX: O23.40 Unspecified infection of urinary tract in pregnancy, unspecified trimester (principal); Z3A.15 15 weeks gestation of pregnancy
CPT/HCPCS: 76815; 87070; 87430; 87804; 94640; 99283; J7030

== ENCOUNTER 2018-09-05 00:52 | Emergency (ER) | payer MEDICAID, OTHER ==
[2018-09-05] MEDS ORDERED: Alum-Mag Hydrox-Simethicone Susp (30 mL) PO ONE (01:49)
[2018-09-05 02:35] LABS: BASO % 0.2 % (0.0-2.0); EOS # 0.1 K/uL (0.0-0.7); EOS % 0.7 % (0.0-4.0); HEMOGLOBIN 11.1 g/dL (12.0-16.0); LYMPH # 1.6 K/uL (1.0-4.3); LYMPH % 14.4 % (20.0-40.0); MEAN PLATELET VOLUME 10.9 fl (7.2-11.7); MONO # 0.6 K/uL (0.0-0.8); MONO % 5.7 % (0.0-10.0); NEUT # 8.7 K/uL (1.8-7.0); RBC 3.72 Mil/uL (3.80-5.20); RED CELL DISTRIBUTION WIDTH 17.5 % (11.5-14.5)
[2018-09-05 02:59] LABS: ALB/GLOB RATIO 1.1 (1.0-2.1); ALBUMIN 3.6 g/dL (3.5-5.0); ALT/SGPT 40 U/L (9-52); AMYLASE 94 U/L (30-110); AST/SGOT 56 U/L (14-36); BLOOD UREA NITROGEN 13 mg/dl (7-17); CALCIUM 9.1 mg/dL (8.4-10.2); GFR NON-AFRICAN AMERICAN > 60; LIPASE 123 U/L (23-300)
[2018-09-05 07:33] VITALS: BP 100/53; PULSE 75
--- NOTE | 2018-09-05 08:35 | OBHP ---
Datetime: 09/05/2018 01:57 IP Adm Impression: , intrauterine IP Admit Plan: Observation/Evaluation Admit Comment, IP Provider: 27-year-old at 22.2 EGA presents for epigastric burning for 1 ho ur duration. Pain does not radiate, mcdonald/cramps, is epigastric and does not radiate. She admits that when the burning woke her up she felt nauseous and vomited once but the pain and nausea was mildly r elieved with Maalox. She denies any loss of fluid, vaginal bleeding, PMH, headache, change in vision, new onset edema, contractions and chest pain. Endorses movement. Previous resulted i n @ 40 weeks with no complications. Patient of Dr Kody Gray in [place], [place]; no complications with thus far. OBGYN: Dr Kody Gray ([place], [place]) PMH: denies Meds: denies Surgical Hx: denies Social: denies Family Hx: denies OBHx: x1 FT, 1x AB Labs: unknown 1st tri, WNL as per patient, no medical records PE: no acute distress Vitals: WNL Abd: no tenderness to palpation Back: no CVA tenderness b/l ROS: all other systems reviewed and negative unless noted in HPI A+P: -Observation -Labs: CBC, CMP -Maalox 30 once -ED precautions given Case seen and discussed with Dr Yazmin Rodriguez PGY1 Pelvic Type - PN: Adequate Extremities - PN: Normal Abdomen - PN: Normal Back - PN: Normal Breast - PN: Not Done Lungs - PN: Normal Heart - PN: Normal Thyroid - PN: Not Done Neurologic - PN: Not Done HEENT - PN: Normal General - PN: Normal EGA AdmitDate IP: 22.2 Vital Signs Provider: Reviewed; Within Normal Limits IP Chief Complaint: Maternal discomfort Genitourinary Exam: Not Done DTRs - PN: Not Done
== END 2018-09-05 03:31 | disposition home or self-care (01) ==
LOC: H.EROB2 00:52
DX: O26.92 Pregnancy related conditions, unspecified, second trimester (principal); R10.2 Pelvic and perineal pain; R11.0 Nausea; Z3A.22 22 weeks gestation of pregnancy

== ENCOUNTER 2018-10-24 22:05 | Emergency (ER) | payer OTHER ==
[2018-10-24 22:39] VITALS: BMI 26.9
[2018-10-24] MEDS ORDERED: Alum-Mag Hydrox-Simethicone Susp (30 mL) PO ONE (22:47)
[2018-10-25] LABS: BASO % 0.3 % (0.0-2.0); EOS # 0.1 K/uL (0.0-0.7); EOS % 0.6 % (0.0-4.0); HEMOGLOBIN 11.9 g/dL (12.0-16.0); LYMPH # 1.3 K/uL (1.0-4.3); LYMPH % 10.1 % (20.0-40.0); MEAN CELL VOLUME 93.9 fl (81.0-99.0); MEAN CORPUSCULAR HEMOGLOBIN 31.2 pg (27.0-31.0); MEAN CORPUSCULAR HGB CONC 33.2 g/dL (33.0-37.0); MEAN PLATELET VOLUME 10.8 fl (7.2-11.7); MONO # 0.5 K/uL (0.0-0.8); MONO % 3.8 % (0.0-10.0); NEUT # 10.6 K/uL (1.8-7.0); NEUT % 85.2 % (50.0-75.0); RBC 3.8 Mil/uL (3.80-5.20); RED CELL DISTRIBUTION WIDTH 15.3 % (11.5-14.5); WHITE BLOOD COUNT 12.5 K/uL (4.8-10.8)
[2018-10-25 00:15] LABS: ALB/GLOB RATIO 1.1 (1.0-2.1); ALBUMIN 3.7 g/dL (3.5-5.0); ALT/SGPT 61 U/L (9-52); AMYLASE 106 U/L (30-110); AST/SGOT 90 U/L (14-36); BLOOD UREA NITROGEN 9 mg/dl (7-17); CALCIUM 9.1 mg/dL (8.4-10.2); GFR NON-AFRICAN AMERICAN > 60; LIPASE 182 U/L (23-300)
[2018-10-25 04:53] VITALS: BP 93/43; PULSE 84; RESP 20; TEMP 98.7; O2SAT 100
--- NOTE | 2018-10-25 18:00 | US ---
Date of service: 10/24/2018 HISTORY: RUQ abdominal pain COMPARISON: None. TECHNIQUE: Sonographic evaluation of the right upper quadrant of the abdomen. FINDINGS: LIVER: Measures 16.1 cm in length. Moderately diffusely increased echogenicity of the liver parenchyma. No mass. No intrahepatic bile duct dilatation. GALLBLADDER: Unremarkable. No gallstones. No reported sonographic Elmore sign. COMMON BILE DUCT: Measures 4.0 mm. No stones. No dilatation. PANCREAS: The tail of the pancreas is obscured by overlying bowel gas with remainder unremarkable. RIGHT KIDNEY: Measures 12.0 cm in length. Normal echogenicity. No calculus, mass, or hydronephrosis. AORTA: No aneurysmal dilatation. IVC: Unremarkable. OTHER FINDINGS: None . IMPRESSION: Moderate hepatic steatosis or other infiltrative liver process. No biliary tree dilatation or gross hepatic mass evident. Preliminary report provided by Allyson, 10/25/2018, 12:18 a.m..
--- NOTE | 2018-10-29 10:58 | OBHP ---
Datetime: 10/24/2018 22:28 IP Adm Impression: , intrauterine IP Admit Plan: Observation/Evaluation; Discharge home Admit Comment, IP Provider: 28-YO at 29.2 EGA, QUITA 01/07/19 (LMP 04/02/18), presents for epiga stric burning-crampy intermittent pain that started 1 hour ago after dinner, with radiation to the RU Q and right upper back, associated with nausea, no vomiting. Patient reports she has had similar pain before, usually after dinner. Patient reports some incomplete relief of pain after she takes Maalox, but otherwise nothing makes the pain better. She denies any VB, LOF, headache, change in vision, diz ziness, new onset edema, pelvic pain, CP, lower back pain, contractions, dysuria, chills or fever. En dorses + movement. ROS: all other systems reviewed and negative unless noted in HPI OBGYN: x1 FT, 1x AB. Previous was @ 40 weeks with no complications. Patient of Dr Kody Gray in [place], [place]; no complications with thus far. PMH: denies Meds: PNV, Maalox as needed Surgical Hx: denies SOCHx: denies Family Hx: Mother HTN ALLERG: NKA Labs: unknown 1st tri, WNL as per patient, no medical records. PE: GEN: no acute distress Vitals: WNL Abd: Gravid, tenderness to palpation of epigastrium and RUQ. Back: no CVA tenderness b/l A/P: 28-YO at 29.2 EGA, QUITA 01/07/19 (LMP 04/02/18), who presents with epigastric and RUQ colicky pain x 1 h duration. Impression: Biliary colic in vs gastritis -Observation -Labs: CBC, CMP stat -Amylase, lipase -Maalox 30 once -RUQ gallbladder US stat Re-evaluation 12:19am: Patient refuses pain medication or Maalox and reports spontaneous resolution of pain at this time, pt reports feeling well. RUQ gallbladder US reviewed found unremarkable( negative for gall stones or dilation). Labs reviewed: Noted elevation of LFTs AST90, ALT 61. Results discussed with patient and mother at bedside, intructions given to f/u with PMD in 2 to 3 days. Patient asymptomatic at present and stable to be discharge home with instructions to f/u with prim fabiola provider. ED Precaution given: return to ED if your pain recurs or you have fever, nausea, vomiting or any o ther symptom or concern. All questions answered, and patient aknowledges understanding of the instructions. Case seen and discussed with attending Dr Sweeney. Attending Note: Paatient was seen and evaluated with the resident and I agrees with the above asse ssment> Extremities - PN: Normal Lungs - PN: Normal Heart - PN: Normal HEENT - PN: Normal General - PN: Normal Comments, ACOG Physical Exam: see triage comment EGA AdmitDate IP: 29.2 Vital Signs Provider: Reviewed; Within Normal Limits IP Chief Complaint: Maternal discomfort
== END 2018-10-25 00:30 | disposition home or self-care (01) ==
LOC: H.EROB2 22:05
DX: O26.93 Pregnancy related conditions, unspecified, third trimester (principal); R10.2 Pelvic and perineal pain; M54.6 Pain in thoracic spine; Z3A.29 29 weeks gestation of pregnancy; O21.0 Mild hyperemesis gravidarum